=== PATIENT | female | born 1950 | race Caucasian/White ===

== ENCOUNTER 2018-06-11 12:33 | Outpatient (CLI) | payer MEDICARE, OTHER ==
[2015-01-19 09:59] VITALS: BP 120/73
== END 2018-06-11 12:50 ==
LOC: LABRHC 12:33
PROVIDERS: ATTEND Podiatrist Foot & Ankle Surgery
DX: B35.1 Tinea unguium (principal)
CPT/HCPCS: 87101; 87220

== ENCOUNTER 2018-07-04 11:23 | Outpatient (CLI) | payer MEDICARE, OTHER ==
[2015-01-19 09:59] VITALS: BP 120/73
== END 2018-07-04 11:24 ==
LOC: LAB 11:23
PROVIDERS: ATTEND Podiatrist Foot & Ankle Surgery
DX: B35.1 Tinea unguium (principal)
CPT/HCPCS: 36415; 80076

== ENCOUNTER 2018-09-03 09:45 | Outpatient (CLI) | payer MEDICARE, OTHER ==
[2015-01-19 09:59] VITALS: BP 120/73
== END 2018-09-03 09:47 ==
LOC: LAB 09:45
PROVIDERS: ATTEND Podiatrist Foot & Ankle Surgery
DX: B35.1 Tinea unguium (principal)
CPT/HCPCS: 36415; 80076

== ENCOUNTER 2019-01-30 16:31 | Outpatient (CLI) | payer MEDICARE, OTHER ==
[2015-01-19 09:59] VITALS: BP 120/73
== END 2019-01-30 16:33 ==
LOC: LAB 16:31
PROVIDERS: ATTEND Obstetrics & Gynecology Gynecology
DX: M85.80 Other specified disorders of bone density and structure, unspecified site (principal)
CPT/HCPCS: 36415; 82306